=== PATIENT | male | born 1950 | race Caucasian/White ===

== ENCOUNTER → 2017-04-04 | Outpatient (CLI) | payer OTHER | END | disposition home or self-care (01) | LOC: C.RDSM 11:47 | PROVIDERS: ATTEND Physical Medicine & Rehabilitation Sports Medicine | DX: M25.562 Pain in left knee (principal) ==

== ENCOUNTER → 2017-04-14 | Outpatient (CLI) | payer OTHER ==
--- NOTE | 2017-04-14 17:26 | DIAGNOSTIC IMAGING REPORT ---
L LOWER EXT JOINT WITHOUT CLINICAL HISTORY: KNEE trauma. Pain. TECHNIQUE: Multiaxial MRI acquisition COMPARISON STUDY: None FINDINGS: Signal characteristics of the osseous structures are unremarkable there is no significant bone marrow replacing process. Anterior and posterior cruciate ligaments are intact. Quadriceps tendon as well as infrapatellar tendon are intact. There is moderate soft tissue edema about the infrapatellar tendon as well as the prepatellar region. There is a small joint effusion. There is mild soft tissue edema seen peripherally about the knee. Lateral collateral ligament is intact. There is a high-grade partial tear of the medial collateral ligament. menisci demonstrates medial and lateral meniscus to be unremarkable in general configuration. There is a grade 2 internal signal felt to be secondary to age-related and physical activity change. 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 Lateral collateral ligament is intact. There is a focus of chondromalacia patella of the medial patellar surface. There is high-grade partial tear of the medial retinaculum IMPRESSION: 1. Generalized soft tissue edema about the knee. 2. 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 3. High-grade tear medial collateral ligament. 4. Several synechiae of the suprapatellar bursa. The above report was generated using voice recognition software. It may contain grammatical, syntax or spelling errors. Electronically signed by: Duarte Lee M.D. 04/14/2017 5:24 PM Dictated Date/Time: 04/14/2017 5:20 PM
== END | disposition home or self-care (01) ==
LOC: C.MRIBC 16:17
PROVIDERS: ATTEND Physical Medicine & Rehabilitation Sports Medicine
DX: S83.412A Sprain of medial collateral ligament of left knee, initial encounter (principal); X58.XXXA Exposure to other specified factors, initial encounter; M22.42 Chondromalacia patellae, left knee

== ENCOUNTER → 2018-01-12 | Outpatient (CLI) | payer OTHER ==
[~2018-01-12] MED LIST: CETI10TA84 PO; MULT-506 PO
--- NOTE | 2018-01-12 08:44 | DIAGNOSTIC IMAGING REPORT ---
LEG LENGTH STUDY (WHOLE LEG) CLINICAL HISTORY: PAIN pain COMPARISON STUDY: No previous studies for comparison. FINDINGS: Entire leg length on the right is 90.7 cm. On the left is 91.3 cm. Differential is 6 mm with the right leg being shorter. Femoral length on the right is 50.9 cm. On the left is 51.3 cm. This accounts for 4 mm of the discrepancy. IMPRESSION: Right entire leg length is 90.7 cm with the left 91.3 cm. Differential is 6 mm, with the bulk of the discrepancy directly related to differential femoral length The above report was generated using voice recognition software. It may contain grammatical, syntax or spelling errors. Electronically signed by: Duarte Lee M.D. 01/12/2018 8:43 AM Dictated Date/Time: 01/12/2018 8:39 AM
== END | disposition home or self-care (01) ==
LOC: C.RDSM 10:37
PROVIDERS: ATTEND Physician Assistant
DX: M21.751 Unequal limb length (acquired), right femur (principal)

== ENCOUNTER → 2018-01-22 | Day surgery (SDC) | payer OTHER ==
[2017-12-24 15:44] VITALS: Ht 180.3 cm; Wt 90.9 kg
[~2018-01-22] VITALS: Ht 180.3 cm; Wt 90.9 kg
[~2018-01-22] MED LIST changes: +ATROPINE SULFATE 0.1 MG/ML 5ML SYR IV PRN; +CEFAZOLIN 2000MG IV PUSH 15 ML IV SCH; +DEXAMETHASONE SOD INJ 4 MG/ML VIAL ONE; +EpHEDrine SULFATE INJ 50 MG/ML AMP ONE; +FENTANYL CITRATE INJ 50 MCG/1 ML 2 ML VIAL ONE; +HYDR-5688 PO; +KETOROLAC TROMETHAMINE 30 MG/ML VIAL IV. PRN; +LABETALOL HCL IV 5 MG/ML 20ML IV PRN; +LACTATED RINGER'S 1000ML 1,000 ML IV SCH; +LIDOCAINE HCL 2% 2 ML VIAL (20MG/ML) ONE; +LIDOCAINE/EPINEPHRINE 1% 20 ML VIAL ONE; +LVNIS30 SC; +MIDAZOLAM HCL 1 MG/ML 2ML VIAL ONE; +MoRPHine SULFATE 2 MG/ML CARP IV PRN; +MoRPHine SULFATE 4 MG/ML 1 ML CARP\\VIAL IV PRN; +ONDANSETRON INJ 2 MG/ML 2 ML VIAL IV PRN; +ONDANSETRON INJ 2 MG/ML 2 ML VIAL ONE; +OXYCODONE/ACETAMINOPHEN 5-325 TAB PO PRN; +PROPOFOL IV EMULSION 10 MG/ML 20 ML VIAL ONE; +SODIUM CHLORIDE 0.9% 1000ML 1,000 ML IV SCH; +SODIUM CHLORIDE 0.9% INJ 10 ML VIAL ONE
--- NOTE | 2018-01-22 08:16 | History & Physical Bridge Note ---
H&P Re-Evaluation Bridge Note: I have examined the patient, reviewed the History & Physical and in the interval since the performance of the History & Physical I have noted the following changes of clinical significance: No changes noted
--- NOTE | 2018-01-22 09:31 | [facility] Post Operative Brief Note ---
Immediate Operative Summary Operative Date Jan 22, 2018. Pre-Operative Diagnosis Left Knee Medial Meniscal Tear, Osteochondral Lesion Post-Operative Diagnosis same, partial acl tear vs hyppertrophy Procedure(s) Performed arthroscopy, acl debridement, debride osteochondral lesion Surgeon Dr. Jazlyn Bishop Electronic Console Display Operator Surgeon(s) Callie Blackwood PA-C Estimated Blood Loss 10 Findings Consistent with Post-Op Diagnosis Specimens none Drains None Anesthesia Type General Complication(s) none Disposition Accompanied Pt To Recover: no Disposition: Recovery Room / PACU
--- NOTE | 2018-01-22 09:48 | Discharge Instructions-SurgCtr ---
Discharge Instructions Date of Service Jan 22, 2018. Visit Reason for Visit: Left Knee Medial Meniscal Tear/Medial Femoral Cond Discharge Discharge Diagnosis / Problem: Left knee medial meniscal tear, osteochondral defect medial femoral condyle Discharge Goals Goal(s): Decrease discomfort, Improve function, Increase independence Activity Recommendations Activity Limitations: per Instructions/Follow-up section Weightbearing Status: Left weightbearing (as tolerated) Anesthesia . Post Anesthesia Instructions: If you have had General Anesthesia or IV Sedation: * Do not drive today. * Resume driving when surgeon permits. * Do not make important decisions or sign legal documents today. * Call surgeon for: 1. Temperature elevations greater than 101 degrees F. 2. Uncontrollable pain. 3. Excessive bleeding. 4. Persistent nausea and vomiting. 5. Medication intolerance (nausea, vomiting or rash). * For nausea and vomiting use only clear liquids such as: tea, soda, bouillon until nausea subsides, then gradually increase diet as tolerated. * If you have any concerns or questions, call your surgeon's office. If physician is unavailable and it is an emergency, call 911 or go to the nearest emergency room. . Instructions / Follow-Up Instructions / Follow-Up The following are instructions to follow after your Arthroscopic Knee Surgery. ACTIVITY RECOMMENDATIONS: * Minimize activity until your first visit after surgery. * No excessive walking, jogging, sports or laboring. * Return to activity is individualized. Most patients are able to return to every day activities within one month. * Return to sports or intensive labor usually occurs at 2-3 months. * Driving is not permitted until at least your first postoperative visit at a minimum. Please ask your doctor when it is safe to resume driving. If you have an automatic vehicle and your left leg has been operated on, then you may begin driving as soon as you are comfortable and can drive safely. SCHOOL/WORK RECOMMENDATIONS: * You may return to sedentary work or school when you are feeling more comfortable. This is usually 3-7 days after surgery. * Expect increased discomfort with increased activity. Continue to elevate and ice the leg as much as possible. MEDICATIONS: * You will have a prescription for pain medication and an anti-inflammatory medication after surgery. * Use the pain medication for severe pain and the anti-inflammatory for less severe pain. Once the pain medication has run out, try to use the anti-inflammatory medication. If this is not effective, contact the office for assistance. * The pain medication may cause nausea, constipation and drowsiness. You should see how they affect you before driving or similar activity. * The anti-inflammatory medication may cause stomach upset and bleeding. If this occurs let your doctor know immediately . * Take a stool softener like Colace or a laxative like Senokot to prevent constipation. DIET: * Resume previous diet. SPECIAL CARE: ICE: You have the option of an ice cooler, gel packs or ice bags. * If you have an ice cooler, refer to the instructions for that device. The ice cooler may be used continuously. * If you do not have an ice cooler, you will need to use ice bags or gel packs. Do not apply ice directly to the skin. Use a thin dressing or sarah shirt between the skin and ice bag. Apply ice for 20-30 minutes and repeat every 2-4 hours. This is especially important for the first 7-10 days after surgery. Once the pain improves, use ice as needed. ELEVATION: * Keep your leg elevated at or above the level of your heart as much as possible. * Expect some increased discomfort and swelling if you are standing for any length of time. * When lying down, avoid placing anything under your knee. Rather, prop your leg up by placing several pillows under your heel or calf. DRESSING: * Your dressing will be changed at your first therapy appointment approximately 4-5 days after surgery. Band-aids, tape strips or gauze may be applied. You may then change your dressing daily. * Reapply dressing followed by the Homer wrap or Tubi-television writer stockinet and EBIce cooling pad (if chosen). * Always wash your hands prior to touching the incision area. * Once the stitches are removed, you may leave the wound open to air or cover with an Homer wrap or Tubi-television writer stockinet. * If you have been given a white elastic stocking (OLIVA hose), wear as much as possible for the first 1-3 weeks depending on swelling. * Expect some bloody drainage for the first few days after surgery. * Leave the tape strips, if present, in place for 5-7 days. * Band-aids and gauze may be changed daily. CRUTCHES: * You will need to use crutches after surgery. * You may gradually progress to full weight bearing as tolerated and wean off the crutches unless otherwise advised. * Your therapist can provide assistance weaning off crutches. * Patients who have a microfracture done may need to be toe-touch weight- bearing for 4-6 weeks. BATHING: * You may shower or sponge-bathe immediately after surgery. * The dressing will need to be covered with a plastic bag or plastic wrap until the dressing is changed on the fourth or fifth day after surgery. * Once the dressing has been changed on the fourth or fifth day after surgery, you may shower and get the incision wet. * Wash with regular soap and water. * Do not bathe (submerge the incision), soak, swim or use a hot tub until the incision is completely healed over with normal skin and the doctor has given the OK to proceed. * There is no need to apply any ointments, powders or salves to your incision. * Do not apply alcohol or hydrogen peroxide directly to the incision. * Diluted peroxide (50:50 mixture with sterile saline) may be used to clean dried blood from around the incision area. BRACE: * Bracing is generally not needed after routine Arthroscopic Knee surgery. THERAPY: * You will begin therapy four or five days after surgery. * Organized therapy with the therapist is important for the first 4-6 weeks after surgery. During that time you will attend therapy 1-3 times per week. * You will also need to do daily exercises for range of motion and strength as instructed. PROBLEMS/QUESTIONS: * If you have any problems such as severe pain, numbness, tingling or high fevers or if you have any questions, please contact the office at [phone]. * It is not uncommon to have some numbness and tingling after the surgery especially if you have had a nerve block done. This should gradually improve over the first 1- 2 days. If this persists longer or worsens please contact the office. FOLLOW UP VISIT: * If not already scheduled, please call the office at to schedule a follow-up appointment for 10 days, 6 weeks and 3 months after surgery. *You have a physical therapy appointment on January 26, 2018 at 10:30 AM *You have a follow-up appointment scheduled with Dr. Bishop at 02/03/2018 at 8 :15 AM Diet Recommendations Home Diet: no limitations, resume previous diet Procedures Procedures Performed: arthroscopy, acl debridement, debride osteochondral lesion Pending Studies Studies pending at discharge: no Medical Emergencies . Who to Call and When: Medical Emergencies: If at any time you feel your situation is an emergency, please call 911 immediately. . Non-Emergent Contact Non-Emergency issues call your: Surgeon Call Non-Emergent contact if: temperature is above 101, your pain is not controlled, your pain is worsening, your pain is unusual for you, your pain is concerning you, wound has increased drainage, wound has increased redness, wound has increased pain, you have any medication questions . . "Provider Documentation" section prepared by Alejandra Blackwood. . [place] Drug Monitoring Program Search Results: patient reviewed within database, no issues identified
[2018-01-22] MEDS: FENTANYL CITRATE INJ 50 MCG/1 ML 2 ML VIAL IV PRN ×2 (09:51→09:59)
--- NOTE | 2018-01-22 09:52 | [facility] Operative Report ---
Operative Report Operative Date Jan 22, 2018. Pre-Operative Diagnosis Left Knee Medial Meniscal Root Tear, Osteochondral Lesion Post-Operative Diagnosis same, partial acl tear vs hyppertrophy Procedure(s) Performed arthroscopy, acl debridement, debride osteochondral lesion Surgeon Dr. Jazlyn Bishop Elevator Tender Surgeon(s) Callie Blackwood PA-C Estimated Blood Loss 10 Findings Left knee medial meniscus root tear, osteochondral lesion Specimens none Drains None Anesthesia Type General Complication(s) none Disposition no Recovery Room / PACU Indications Patient is a 67-year-old male status post left knee injury. Pain and swelling of his left knee. X-rays show mild to moderate osteoarthritic changes. MRI was obtained and showed found to have a medial meniscal root tear and an osteochondral lesion of his medial femoral condyle. Conservative treatment versus surgical intervention was discussed. He wished to proceed with surgery. Risks and complications of surgery were discussed and informed consent was obtained. Description of Procedure Patient was taken to the operating room and placed under general anesthesia. He was given 2 g of IV Ancef for surgical prophylaxis. Timeout was performed. He was prepped and draped in routine sterile fashion. I was present during the entire case, please see Dr. Bishop's operative report for further detail. Patient was awakened and transferred to the recovery room in stable condition. I attest to the content of the Intraoperative Record and any orders documented therein. Any exceptions are noted below.
--- NOTE | 2018-01-22 10:02 | [facility] Operative Report ---
Operative Report Operative Date Jan 22, 2018. Pre-Operative Diagnosis Left Knee Medial Meniscal Root Tear, Osteochondral Lesion Post-Operative Diagnosis same, partial acl tear vs hypertrophy Procedure(s) Performed arthroscopy, acl debridement, debride osteochondral lesion Surgeon Dr. Jazlyn Bishop Data Steward Surgeon(s) Callie Blackwood PA-C Estimated Blood Loss 10 Findings Partial ACL tear posterior lateral bundle versus mucoid degeneration versus ACL hypertrophy. Diffuse midgrade chondrosis medial compartment with an unstable osteochondral lesion 2 cm anterior to posterior 12 mm medial to lateral approximately 8 mm deep. Specimens none Drains None Anesthesia Laryngeal mask Complication(s) None Disposition Recovery Room / PACU Indications Patient's a 67-year-old gentleman. He has been treated in the past year for a knee pain and suspected torn meniscus. He was treated with cortisone injection and did well temporarily. He had developed persistent and worsening knee pain and on reevaluation with x-ray and MRI was found to have medial compartment overload and a osteochondral lesion of the medial femoral condyle unstable with cystic changes. He has an upcoming vacation in about 2 months that he does not want to miss. He just got back from vacation. We talked about options including arthroscopy and debridement. Other considerations would be high tibial osteotomy medial meniscal root repair and osteochondral allograft which I think is probably not indicated in this situation. He likely may need either a high tibial osteotomy or knee replacement. Description of Procedure Informed consent obtained. Patient identified. I marked the operative site with my initials. Preop surgical timeout performed. Preop dose of IV antibiotics given. He was positioned supine on the OR table with a lateral post used for stressing the knee. No tourniquet. The limb was prepped and draped in the usual sterile fashion. DVT prophylaxis with foot pumps and postoperatively with Lovenox and early mobility. The exam under anesthesia revealed moderate effusion ranges 0-135 with intact cruciate and collateral ligaments and mild varus alignment. Inferolateral viewing portal superior lateral outflow portal and inferomedial working portals were established. There were no loose bodies. The retropatellar fat pad was resected. There was a septated suprapatellar pouch. There was grade 1 chondrosis of the patella mostly on the median ridge. The trochlea showed grade 1 and grade 2 changes diffusely. The medial lateral gutters and popliteal hiatus was normal. The posterior lateral bundle of the ACL appeared to be partially torn or hypertrophied and appeared to impinge on the lateral condyle. I carefully debrided part of the posterior lateral bundle leaving the remainder of it and the anteromedial bundle intact. There was a bone prominence anterior to the ACL and the notch which could have been a prominent lateral intercondylar ridge. PCL was normal. Lateral compartment showed grade 1 softening of the lateral tibial plateau diffusely the lateral meniscus was intact and stable to probing the posterior lateral compartment was normal. The cartilage on the femur laterally was normal. On the medial side there is no loose bodies in the posterior medial compartment was normal however he did have a distracted medial meniscal root tear which was complete otherwise the medial meniscus was intact. There were grade 1 and 2 changes over the tibia diffusely. There are grade 2-4 changes over the femur mostly grade 2 and 3 and 1 or 2 very small areas couple millimeters in size of grade 4 change. I probed with the probe and was able to identify a unstable segment of cartilage which was opened up revealing a cavity underneath. This was fragmented bone and cartilage which was debrided with the shaver and grasper. The lesion itself was debrided and curettage was performed to remove any loose fragments. This was on the medial side medial midline but did engage into the meniscus and weightbearing area. This was on the weightbearing area of the distal femur. Approximately 12 mm wide 20 mm long and 8 mm deep. Chondroplasty was performed. The shaver was run through need to pickle cutter loose debris. The orthoscopic instruments were removed from the knee. Portals were closed with 4 nylon in a soft sterile dressing was applied. Patient is awake from anesthesia and taken to the recovery room in stable condition. There were no specimens or complications. Counts were correct. Blood loss was approximately 10 cc. At the conclusion operation spoke patient's family informed of my findings. Detailed postoperative instructions were given. He will be able to weight-bear as tolerated with PT. He will start his Lovenox 12 hours postoperatively and then begin aspirin 325 twice daily once that is completed. He may require total knee arthroplasty in the future. I attest to the content of the Intraoperative Record and any orders documented therein. Any exceptions are noted below.
--- NOTE | 2018-01-22 10:15 | Anesthesia Progress Nt - [facility] ---
Anesthesia Post Op Note Date & Time Jan 22, 2018 at 10:15 Vital Signs Vital Signs Past 12 Hours Date Time Temp Pulse Resp B/P (MAP) Pulse Ox O2 Delivery O2 Flow Rate FiO2 01/22/18 10:06 36.4 148/86 01/22/18 10:04 64 11 99 01/22/18 10:04 64 11 01/22/18 10:01 150/89 01/22/18 09:59 61 19 01/22/18 09:59 60 19 99 01/22/18 09:56 148/91 01/22/18 09:54 50 10 01/22/18 09:54 49 10 100 01/22/18 09:51 145/95 01/22/18 09:49 58 11 100 01/22/18 09:49 56 11 01/22/18 09:46 156/99 01/22/18 09:44 55 15 01/22/18 09:44 55 15 99 01/22/18 09:41 161/96 01/22/18 09:39 36.6 62 16 163/101 98 Mask 6 01/22/18 07:51 36.3 53 18 160/95 (116) 98 Room Air Notes Mental Status: alert / awake / arousable, participated in evaluation Pt Amnestic to Procedure: Yes Nausea / Vomiting: adequately controlled Pain: adequately controlled Airway Patency, RR, SpO2: stable & adequate BP & HR: stable & adequate Hydration State: stable & adequate Anesthetic Complications: no major complications apparent
[2018-01-22 10:22] VITALS: TEMP 36.5
[2018-01-22 11:06] VITALS: BP 155/81; PULSE 58; O2SAT 97
== END | disposition home or self-care (01) ==
LOC: X.SURG 07:32
PROVIDERS: ATTEND Physical Medicine & Rehabilitation Sports Medicine
DX: S83.242A Other tear of medial meniscus, current injury, left knee, initial encounter (principal); X58.XXXA Exposure to other specified factors, initial encounter; M67.862 Other specified disorders of synovium, left knee; M93.962 Osteochondropathy, unspecified, left lower leg